=== PATIENT | female | born 1945 | race African-American/Black ===

== ENCOUNTER 2025-03-21 15:10 | Inpatient (IN) | payer MEDICARE, SELFPAY ==
--- NOTE | ~2025-03-21 | CT_ITS ---
EXAMINATION: CTA NECK WITH CONTRAST (STROKE) CTA BRAIN WITH CONTRAST (STROKE) CLINICAL INFORMATION: Suspect acute stroke. Assess for major vessel occlusion. Please call report. COMPARISON: Correlated to CT brain dated March 21, 2025. TECHNIQUE: CTA of the head and neck was performed in the axial plane from the mediastinum to the skull vertex using 70 mL Omnipaque 350 intravenous contrast. Additional reformatted multiplanar images including maximum intensity projection MIP images are generated on the CT workstation. This CT examination was performed using dose optimization techniques as appropriate, variously including the following: *Automated exposure control *Adjustment of mA and/or kV according to patient size (this includes techniques or standardized protocols for targeted exams where dose is matched to indication/reason for exam; i.e. extremities or head) *Use of iterative reconstruction technique DLP: 701 mGy-cm FINDINGS: The degree of stenosis determined by criteria similar to NASCET. Chest CTA: No aneurysm or dissection in the included aortic arch. Calcified plaque in the origin of the left subclavian artery. Neck CTA: Right CCA: Tortuosity. Normal patency. No focal stenosis. No intimal flap. Right ICA: Calcified plaque. Normal patency. No focal stenosis. No intimal flap. Left CCA: Normal patency. No focal stenosis. No intimal flap. Tortuosity in the proximal segment. Left ICA: Calcified plaque representing less than 50% stenosis. Normal patency. No intimal flap. V1/V2 segments: Normal patency. No focal stenosis. No intimal flap. Codominant. Both orientating from the subclavian arteries. Brain CTA: Anterior cerebral circulation: ICAs: Calcified plaque. Normal patency. No focal stenosis. No abrupt cut off. No gross vascular abnormality. MCA's: Normal patency. No focal stenosis. No abrupt cut off. Bifurcation/trifurcation demonstrated no vascular abnormality. Ophthalmic arteries are patent without gross abnormality at the origin. ACAs: Normal patency. No focal stenosis. No abrupt cut off. Anterior communicating artery is patent. Posterior communicating arteries are patent. No vascular irregularity. Posterior cerebral circulation: V3/V4 segments: Normal patency. No focal stenosis. No intimal flap. Posterior inferior cerebral arteries are patent without gross abnormality. Basilar artery is patent without focal stenosis or intimal flap. Right anterior inferior cerebral arteries patent without gross abnormality. Superior cerebellar arteries are patent without gross abnormality. technical advisor: Normal patency. No focal stenosis. No abrupt cut off. Hypoplastic right P1 segment. Ancillary findings: There is a 16 x 10 mm partially calcified extra-axial soft tissue lesion posterior to the left petrous bone and above the vestibular aqueduct. Absent nasal septum. Edentulous, maxilla and mandible. Large retention cyst, right maxillary sinus. Poor pneumatization right frontal sinus. Pulmonary mosaic pattern. Multilevel cervical spondylosis., CT/CT angio head neck STROKE IMPRESSION: No main cerebral artery occlusion or embolus or gross aneurysm. No dissection. Calcified plaques, left ICA. 16 x 10 mm extra-axial partially calcified mass in the left posterior cranial fossa. Consider partially calcified meningioma versus endolymphatic sac tumor. 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 This critical test result is communicated to: The emergency physician Dr. Antoine Lua at 3:44 PM on March 21, 2025. Electronically signed by: Austin Davis MD 03/21/2025 03:55 PM [facility]
--- NOTE | ~2025-03-21 | MR_ITS ---
CLINICAL HISTORY: right sided weakness Exam: Nonenhanced MRI brain. Comparison: CT brain performed the same day. Findings: There is no cerebral edema or mass effect. White matter reveals multifocal areas of T2 hyperintensity common nonspecific although likely sequela of chronic microangiopathic disease. Diffusion weighted imaging reveals no restricted diffusion or MR evidence of acute ischemia. Susceptibility weighted imaging reveals no susceptibility artifact or evidence of intracranial hemorrhage. No sellar or parasellar lesions. Ventricular size and configuration are within normal limits. Cerebral cisterns are preserved. A right maxillary sinus retention cyst is present. No other significant signal abnormality seen within the paranasal sinuses or mastoid air cells. Preserved flow signal voids are present within visualized intracranial vasculature. Impression: 1. No acute intracranial abnormalities. This document has been electronically signed by: Michael Sahu MD on 03/21/2025 18:41:59
--- NOTE | ~2025-03-21 | CT_ITS ---
EXAMINATION: CT HEAD WITHOUT IV CONTRAST STROKE HISTORY: Stroke Protocol. TECHNIQUE: Unenhanced helical CT of the head was performed per standard departmental protocol. Coronal and sagittal reformats of the head were also evaluated. One or more of the following techniques was used for dose reduction: Automated exposure control, adjustment of the mA and/or kV according to patient size, use of iterative reconstruction technique. DLP: 665 mGy-cm COMPARISON: There are no prior studies available for comparison. FINDINGS: BRAIN: There is diffuse prominence of the ventricular system and cortical sulci, consistent with atrophy. Periventricular and subcortical white matter hypodensities are noted which are nonspecific, but often seen in the setting of small vessel ischemic disease. There is no mass effect or midline shift. No intra- or extra-axial fluid collections are identified. SINUSES: The visualized paranasal sinuses are clear. The mastoid air cells and middle ear cavities are well pneumatized. ORBITS: The visualized orbits are unremarkable. BONES/SOFT TISSUES: The extracranial soft tissues are unremarkable. The calvarium is intact. No suspicious lytic or sclerotic lesions. CT/CT head for STROKE IMPRESSION: No acute intracranial abnormality. Findings were discussed with Dr. Chan in the emergency room on 03/21/2025 at 3:28 PM. Electronically signed by: Navi Morse MD 03/21/2025 03:26 PM [facility]
--- NOTE | 2025-03-21 15:15 | ECG_ITS ---
Test Reason : ?stroke Blood Pressure : */* mmHG Vent. Rate : 58 BPM Atrial Rate : 58 BPM P-R Int : 146 ms QRS Dur : 78 ms QT Int : 448 ms P-R-T Axes : 30 -33 0 degrees QTcB Int : 439 ms Sinus bradycardia with occasional Premature ventricular complexes Left axis deviation Minimal voltage criteria for LVH, may be normal variant ( R in aVL ) Abnormal ECG When compared with ECG of 13-Feb-2010 00:48, MANUAL COMPARISON REQUIRED PREVIOUS ECG IS INCOMPATIBLE Referred By: Antoine Chan Electronically Signed By: Phong Lopes
--- NOTE | 2025-03-21 15:17 | ED.NEUROSD ---
HPI - Neuro Symptoms/Deficit General Chief Complaint: Stroke Stated Complaint: lkwt 2 am, R side facial doop/weakness, Time Seen by Provider: 03/21/25 15:15 History of Present Illness ED Provider: kelly HPI Narrative: Patient was last known well 02:00 when she went to bed someone in family member in the house saw her then. Awoke 10:00 with speech changes subtle right facial droop noted by family. EMS arrived felt that her right upper extremity is slightly weak. Called in as notification for possible stroke. Blood pressure 170s over 80s and route with euglycemia. Related Data Home Medications ?Medication ?Instructions ?Recorded ?Confirmed amlodipine 2.5 mg tablet 2.5 mg PO DAILY 03/21/25 03/21/25 aspirin 81 mg tablet 81 mg PO DAILY 03/21/25 03/21/25 atorvastatin 40 mg tablet 40 mg PO DAILY 03/21/25 03/21/25 gabapentin 600 mg tablet 600 mg PO TID 03/21/25 03/21/25 quetiapine 400 mg tablet,extended 400 mg PO BEDTIME 03/21/25 03/21/25 release 24 hr risperidone 2 mg tablet 2 mg PO BID 03/21/25 03/21/25 Allergies Allergy/AdvReac Type Severity Reaction Status Date / Time No Known Allergies Allergy Verified 03/21/25 15:33 [facility] Past Medical History Medical History (Updated 03/22/25 @ 10:44 by Óscar Kohler MD) Hypertension Social History Social History Household Members: None Housing: Apartment Do you presently have visiting nurse or other home services: Yes Patient Tobacco Use Status: Never used Tobacco Smoked in Last 30 Days: No Use of substances other than those prescribed or required for medical reasons: No Have you been hit, kicked, punched, or otherwise hurt by someone within the past year? If so, by whom?: No Do you feel safe in your current relationship?: No Is there a partner from a previous relationship who is making you feel unsafe now?: No Are you made to feel afraid or neglected: No Advance Directives: No Advance Directives Information Provided: No Advance Directives on File: No Do you have a plan to hurt others: No Plan Recently lost weight without trying: Yes How much weight loss: 2-13 pounds Eating poorly because of decreased appetite: No Nutrition screen score: 3 Nutrition Risks: No Nutritional Risk Patient : No : No Poor oral hygiene: No Physical Exam Exam: Exam: GENERAL: Well appearing. No apparent distress. Alert. HEAD/NECK: Normal to inspection. Neck supple. No cervical lymphadenopathy. EYES: Normal to inspection. Sclera non-icteric. ENMT: External nose normal. RESPIRATORY: Respiratory effort normal. Lungs clear to auscultation bilaterally. CARDIOVASCULAR: Regular rate. Normal rhythm. No murmur. No rubs. GI: Soft, non-tender, non-distended. No rebound or guarding. No masses palpable. No hepatosplenomegaly. SKIN: No jaundice. NEUROLOGICAL: Alert. PSYCHIATRIC: Alert. Appearance appropriate for situation. Attitude cooperative. OTHER: Comprehensive Neuro exam: Perhaps subtle right-sided facial droop, tongue midline, strong symmetric eye closure, pupils symmetric and reactive to light, intact sensation to the face throughout, intact strong face deviation and shoulder shrug. Sensation intact to light touch throughout 5 out of 5 strength in left upper extremity subtle weak [employer] strength on the right side and pronator drift proximally, 5 and 5 strength in lower extremities Vital Signs: Vital Signs: Last Vital Signs Temp 97.3 F 03/22/25 11:48 Pulse 51 03/22/25 11:48 Resp 18 03/22/25 11:48 BP 187/80 H 03/22/25 11:48 Pulse Ox 100 03/22/25 11:48 O2 Del Method Room Air 03/22/25 11:48 BMI result Body Mass Index 31.5 Medications Administered Generic Name Dose Route Start Last Admin Trade Name Freq PRN Reason Stop Dose Admin Aspirin 81 mg 03/22/25 09:00 03/22/25 09:37 Aspirin Enteric Coated 81 Mg Tablet.Dr PO 81 mg DAILY MONO Administration Atorvastatin Calcium 80 mg 03/21/25 21:00 03/21/25 20:46 Atorvastatin Calcium 80 Mg Tablet PO 80 mg BEDTIME MONO Administration Cyanocobalamin 1,000 mcg 03/22/25 09:00 03/22/25 09:37 Cyanocobalamin (Vitamin B-12) 1,000 Mcg Tablet PO 1,000 mcg DAILY MONO Administration Enoxaparin Sodium 40 mg 03/22/25 10:00 03/22/25 09:40 Enoxaparin Sodium 40 Mg/0.4 Ml Syringe SUBCUT 40 mg Q24H MONO Administration Folic Acid 1 mg 03/22/25 09:00 03/22/25 09:37 Folic Acid 1 Mg Tablet PO 1 mg DAILY MONO Administration Gabapentin 600 mg 03/21/25 21:00 03/22/25 09:37 Gabapentin 600 Mg Tablet PO 600 mg TID MONO Administration Quetiapine Fumarate 200 mg 03/21/25 21:00 03/22/25 09:37 Quetiapine Fumarate 200 Mg Tablet PO 200 mg BID MONO Administration Risperidone 2 mg 03/21/25 21:00 03/22/25 09:37 Risperidone 2 Mg Tablet PO 2 mg BID MONO Administration Sodium Chloride 3 ml 03/22/25 00:00 03/22/25 12:05 0.9 % Sodium Chloride Flush 3 Ml Syringe IVFLUSH Not Given QSHIFT MONO Discontinued Medications Generic Name Dose Route Start Last Admin Trade Name Donq PRN Reason Stop Dose Admin Aspirin 324 mg 03/21/25 15:48 03/21/25 16:00 Aspirin 81 Mg Tab.Chew PO 03/21/25 15:49 324 mg ONCE ONE Administration Iohexol 100 ml 03/21/25 15:36 03/21/25 15:36 Iohexol 350 Mg/Ml 100 Ml Infus..Btl IV 03/21/25 15:37 70 ml ONCE ONE Administration Medical Decision Making Medical Decision Making MDM Narrative: Medical Decision Making: [age] female with neurologic symptoms mostly aphasia right-sided facial droop and weak [employer] strength right side. Stroke scale see above. NIHSS [address] and CTA negative for acute explanation for the patient's symptoms. Patient will need telemetry, risk stratification, aspirin MRI. Preliminary Favored Differential Diagnosis: CVA, less likely focal seizure, bleed, mass among additional considered etiologies Testing Interpreted Independently: Sinus rhythm no AFib verse ischemic changes. Radiology or Lab testing Results Reviewed: ?See below for details Consults: Case and imaging discussed directly with Dr. Darrin hammond of radiology Independent Historians/External Chart Reviews: ?See below for details Social Determinants of Health Impacting MDM/Planning: ?See below for details Lab Data 03/22/25 04:30 03/22/25 04:30 Labs: Lab Results 03/21/25 03/21/25 03/21/25 Range/Units 15:12 15:20 15:21 WBC 3.3 L (4.8-10.8) X10*3/uL RBC 3.32 L (4.20-5.50) X10*6/uL Hgb 12.0 (12.0-16.0) g/dl Hct 35.8 L (37.0-47.0) % MCV 107.8 H (80.0-98.0) fL MCH 36.1 H (27.0-33.0) pg MCHC 33.5 (31.0-35.0) g/dl RDW 15.0 (11.0-16.0) % Plt Count 167 (160-400) X10*3/uL MPV 10.4 (9.4-12.3) fL Immature Gran % (Auto) 0.3 (0.0-0.4) % Neut % (Auto) 53.1 (45-73) % Lymph % (Auto) 37.3 (20-40) % [place] % (Auto) 4.8 (2-11) % Eos % (Auto) 3.9 (0-4) % Baso % (Auto) 0.6 (0-2) % Lymph # (Auto) 1.2 (1.2-4.9) X10*3/uL [place] # (Auto) 0.2 (0.1-1.2) X10*3/uL Eos # (Auto) 0.1 (0.0-0.4) X10*3/uL Baso # (Auto) 0.0 (0.0-0.2) X10*3/uL Abs Immat Gran (auto) 0.01 (0.00-0.03) X10*3/uL Absolute Neuts (auto) 1.8 L (2.0-8.3) x10*3/uL Absolute Nucleated RBC 0.000 (0.0-0.012) X10*3/uL Nucleated RBC % (auto) 0.0 (0.0-0.2) /100WBC PT (11.2-13.5) SEC Whole Blood PT 12.8 (11.1-13.5) sec INR (0.9-1.1) Whole Blood INR 1.1 (0.9-1.1) APTT (26.7-34.1) SEC Sodium (135-145) mmol/L Potassium (3.3-5.1) mmol/L Chloride (96-108) mmol/L Carbon Dioxide (22-29) mmol/L Anion Gap (12-20) BUN (9-16) mg/dL Creatinine (0.5-1.4) mg/dL Estim Creat Clear Calc Estimated GFR POC Glucose 95 (60-115) mg/dL Random Glucose (60-115) mg/dL Estimat Average Glucose 82 mg/dL Hemoglobin A1c % 4.5 (<6.0) % Calcium (8.4-10.2) mg/dL Magnesium (1.6-2.6) mg/dL Total Bilirubin (0.0-1.0) mg/dL Direct Bilirubin (0.0-0.5) mg/dL AST (5-31) U/L ALT (0-31) U/L Alkaline Phosphatase (39-117) U/L Troponin I High Sens < 2.7 (<3.5-17.0) ng/L Total Protein (6.5-8.0) g/dL Albumin (3.5-5.0) g/dL Triglycerides (<150) mg/dL Cholesterol (<200) mg/dL LDL Cholesterol, Calc (<100) mg/dL HDL Cholesterol (>40) mg/dL TSH (0.32-4.0) uIU/mL 03/21/25 03/21/25 Range/Units 15:34 15:36 WBC (4.8-10.8) X10*3/uL RBC (4.20-5.50) X10*6/uL Hgb (12.0-16.0) g/dl Hct (37.0-47.0) % MCV (80.0-98.0) fL MCH (27.0-33.0) pg MCHC (31.0-35.0) g/dl RDW (11.0-16.0) % Plt Count (160-400) X10*3/uL MPV (9.4-12.3) fL Immature Gran % (Auto) (0.0-0.4) % Neut % (Auto) (45-73) % Lymph % (Auto) (20-40) % [place] % (Auto) (2-11) % Eos % (Auto) (0-4) % Baso % (Auto) (0-2) % Lymph # (Auto) (1.2-4.9) X10*3/uL [place] # (Auto) (0.1-1.2) X10*3/uL Eos # (Auto) (0.0-0.4) X10*3/uL Baso # (Auto) (0.0-0.2) X10*3/uL Abs Immat Gran (auto) (0.00-0.03) X10*3/uL Absolute Neuts (auto) (2.0-8.3) x10*3/uL Absolute Nucleated RBC (0.0-0.012) X10*3/uL Nucleated RBC % (auto) (0.0-0.2) /100WBC PT 12.7 (11.2-13.5) SEC Whole Blood PT (11.1-13.5) sec INR 1.0 (0.9-1.1) Whole Blood INR (0.9-1.1) APTT 27.8 (26.7-34.1) SEC Sodium 145 (135-145) mmol/L Potassium 3.5 (3.3-5.1) mmol/L Chloride 110 H (96-108) mmol/L Carbon Dioxide 28 (22-29) mmol/L Anion Gap 11 L (12-20) BUN 8 L (9-16) mg/dL Creatinine 0.66 (0.5-1.4) mg/dL Estim Creat Clear Calc 77.4 Estimated GFR > 60 POC Glucose (60-115) mg/dL Random Glucose 91 (60-115) mg/dL Estimat Average Glucose mg/dL Hemoglobin A1c % (<6.0) % Calcium 9.9 (8.4-10.2) mg/dL Magnesium 1.7 (1.6-2.6) mg/dL Total Bilirubin 0.5 (0.0-1.0) mg/dL Direct Bilirubin 0.2 (0.0-0.5) mg/dL AST 21 (5-31) U/L ALT 10 (0-31) U/L Alkaline Phosphatase 78 (39-117) U/L Troponin I High Sens (<3.5-17.0) ng/L Total Protein 7.0 (6.5-8.0) g/dL Albumin 3.8 (3.5-5.0) g/dL Triglycerides 62 (<150) mg/dL Cholesterol 249 H (<200) mg/dL LDL Cholesterol, Calc 160 H (<100) mg/dL HDL Cholesterol 77 (>40) mg/dL TSH 0.68 (0.32-4.0) uIU/mL NIH Stroke Scale Internal: Initial- Upon Arrival Time: 15:30 Level of Consciousness: Alert Level of Consciousness Questions: Answers both questions correctly Level of Consciousness Commands: Performs both tasks correctly Best Gaze: Normal Visual: No visual loss Facial Palsy: Minor paralyis Motor Arm (Right): Drift Motor Arm (Left): No drift Motor Leg (Right): No drift Motor Leg (Left): No drift Limb Ataxia: Absent Sensory: Normal Best Language: No aphasia Dysarthia: Mild to moderate dysarthria Extinction and Inattention: No abnormality Score: 3 Discharge Plan Discharge Clinical Impression: Brain parenchymal calcification Patient Disposition: Admitted As Inpatient Interventions: Admission Worksheet (ED) Last Done: 03/22/25 07:42 Discharge Date/Time: 03/22/25 09:00
[2025-03-21 15:24] LABS: Glucose, Whole Blood 95 mg/dL (60-115)
[2025-03-21 15:30] VITALS: BP 164/69; PULSE 75; RESP 12; TEMP 36.7; O2SAT 98; BMI 31.5
[2025-03-21] MEDS: iohexoL 350 MG/ML 100 ML INFUS..BTL IV (15:36)
[2025-03-21 15:37] LABS: MANUAL DIFF FLAG NO
[2025-03-21 15:41] LABS: Hematocrit 35.8 % (37.0-47.0); Hemoglobin 12.0 g/dl (12.0-16.0); Imm Gran Abs Auto 0.01 X10*3/uL (0.00-0.03); Imm Gran Pct Auto 0.3 % (0.0-0.4); Lymphocytes Absolute Auto 1.2 X10*3/uL (1.2-4.9); Mean Corpuscular HGB Conc 33.5 g/dl (31.0-35.0); Mean Corpuscular Hemoglobin 36.1 pg (27.0-33.0); Mean Corpuscular Volume 107.8 fL (80.0-98.0); NRBC Abs Auto 0.000 X10*3/uL (0.0-0.012); NRBC Pct Auto 0.0 /100WBC (0.0-0.2); Platelet Count 167 X10*3/uL (160-400); Red Blood Count 3.32 X10*6/uL (4.20-5.50); White Blood Count 3.3 X10*3/uL (4.8-10.8)
[2025-03-21 15:57] LABS: INTERNATIONAL NORM RATIO 1.0 (0.9-1.1); Prothrombin Time 12.7 SEC (11.2-13.5)
[2025-03-21 15:59] VITALS: BP 155/89; PULSE 59; RESP 15; O2SAT 96
[2025-03-21 16:00] LABS: Partial Thromboplastin Time 27.8 SEC (26.7-34.1)
[2025-03-21 16:00] LABS: Prothrombin Time Whole Bld POC 12.8 sec (11.1-13.5); ~PT, ~INR - Anti Coag Clinic 1.1 (0.9-1.1)
[2025-03-21 16:02] LABS: Stroke Lab Use COMPLETE
[2025-03-21 16:05] LABS: Troponin-I High Sensitivity < 2.7 ng/L (<3.5-17.0)
--- NOTE | 2025-03-21 16:39 | PM.IMHP ---
History of Present Illness Date of Service: 03/21/25 Chief Complaint: aphasia 80M PMH HTN, schizoaffective, breast and endometrial cancer in remission presented with expressive aphasia. Last known well time was 02:00 of day of presentation. For on 10:00 sister noticed expressive aphasia and slurred speech, patient noticed some right upper extremity weakness. In ED CTA head and neck negative for acute stroke or cerebral artery occlusion did show incidental finding of extra-axial calcified mass in left posterior cranial fossa Review of Systems Review of Systems: Yes all other systems are reviewed and are negative [facility] Medical History (Updated 03/21/25 @ 16:42 by Vel Villarreal MD) Hypertension Social History Do you have a plan to hurt others: No Plan Meds Allergies Allergy/AdvReac Type Severity Reaction Status Date / Time No Known Allergies Allergy Verified 03/21/25 15:33 Active Medications: Current Medications Acetaminophen (Acetaminophen 325 Mg Tablet) 650 mg PO Q6H PRN PRN Reason: Pain, Mild 1-3,fever,headache Calcium Carbonate (Calcium Carbonate 750 Mg Tab.Chew) 750 mg PO Q4H PRN PRN Reason: Heartburn Enoxaparin Sodium (Enoxaparin Sodium 40 Mg/0.4 Ml Syringe) 40 mg SUBCUT Q24H MONO Magnesium Hydroxide (Milk Of Magnesia 30 Ml Oral.Susp) 30 ml PO DAILY PRN PRN Reason: Constipation Magnesium Hydroxide (Milk Of Magnesia 30 Ml Oral.Susp) 30 ml PO DAILY PRN PRN Reason: Constipation Melatonin (Melatonin 3 Mg Tablet) 6 mg PO BEDTIME PRN PRN Reason: Insomnia Sodium Chloride (0.9 % Sodium Chloride Flush 3 Ml Syringe) 3 ml IVFLUSH QSHIFT [facility] Physical Exam Vital Signs and Narrative: Vital Signs: Last Vital Signs Temp 98.0 F 03/21/25 15:30 Pulse 59 03/21/25 15:59 Resp 15 03/21/25 15:59 BP 155/89 H 03/21/25 15:59 Pulse Ox 96 03/21/25 15:59 O2 Del Method Room Air 03/21/25 15:59 BMI result Body Mass Index 31.5 General: AO X 3, no acute distress Resp: CTA bilateral, no accessory muscles used CVS: S1,S2,RRR GI: soft, non tender, non distended Neuro: Mild right upper extremity weakness Psych: appropriate affect, appropriate insight Results Labs 03/21/25 15:21 03/21/25 15:20 Labs: Laboratory Results - last 24 hr 03/21/25 03/21/25 03/21/25 15:12 15:20 15:21 MCV 107.8 H MCH 36.1 H MCHC 33.5 RDW 15.0 Plt Count 167 MPV 10.4 Immature Gran % (Auto) 0.3 Neut % (Auto) 53.1 Lymph % (Auto) 37.3 [place] % (Auto) 4.8 Eos % (Auto) 3.9 Baso % (Auto) 0.6 Lymph # (Auto) 1.2 [place] # (Auto) 0.2 Eos # (Auto) 0.1 Baso # (Auto) 0.0 Abs Immat Gran (auto) 0.01 Absolute Neuts (auto) 1.8 L Absolute Nucleated RBC 0.000 Nucleated RBC % (auto) 0.0 PT Whole Blood PT 12.8 INR Whole Blood INR 1.1 APTT POC Glucose 95 Troponin I High Sens < 2.7 03/21/25 15:34 MCV MCH MCHC RDW Plt Count MPV Immature Gran % (Auto) Neut % (Auto) Lymph % (Auto) [place] % (Auto) Eos % (Auto) Baso % (Auto) Lymph # (Auto) [place] # (Auto) Eos # (Auto) Baso # (Auto) Abs Immat Gran (auto) Absolute Neuts (auto) Absolute Nucleated RBC Nucleated RBC % (auto) PT 12.7 Whole Blood PT INR 1.0 Whole Blood INR APTT 27.8 POC Glucose Troponin I High Sens Imaging Radiologist's Impressions: Impressions Head CT 03/21/25 15:16 IMPRESSION: No acute intracranial abnormality. Findings were discussed with Dr. Chan in the emergency room on 03/21/2025 at 3:28 PM. Electronically signed by: Navi Morse MD 03/21/2025 03:26 PM [facility] Head/Neck CTA 03/21/25 15:20 IMPRESSION: No main cerebral artery occlusion or embolus or gross aneurysm. No dissection. Calcified plaques, left ICA. 16 x 10 mm extra-axial partially calcified mass in the left posterior cranial fossa. Consider partially calcified meningioma versus endolymphatic sac tumor. 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 This critical test result is communicated to: The emergency physician Dr. Antoine Lua at 3:44 PM on March 21, 2025. Electronically signed by: Austin Davis MD 03/21/2025 03:55 PM [facility] Assessment and Plan (1) Hypertension: Status: Acute Plan 80M PMH HTN, schizoaffective, breast and endometrial cancer in remission presented with expressive aphasia Expressive aphasia right upper extremity weakness Rule out TIA/CVA Check MRI, echo, neuro eval, PT OT speech Aspirin, statin Hypertension Permissive hypertension Schizoaffective Risperdal History of breast and endometrial cancer In remission Macrocytosis Possibly due to alcohol use, drinks about 2 bottles of wine per week Check B12, folate, TSH DVT prophylaxis Lovenox Full code Given high-risk for CVA and recurrent CVA and need for extensive workup including neurology eval expected require at least 2 midnights inpatient Quality Stroke Does the patient have a stroke diagnosis?: Yes Reason for No Anti-thrombotic by Day Two: N/A - Med Ordered VTE Prior VTE?: No VTE Risk Level:: Medical - moderate - high VTE Device Contraindication: Treatment Not Indicated VTE Drug Contraindication: N/A - Med Ordered
[2025-03-21 17:11] LABS: Anion Gap 11 (12-20); Blood Urea Nitrogen 8 mg/dL (9-16); Calcium 9.9 mg/dL (8.4-10.2); Carbon Dioxide 28 mmol/L (22-29); Chloride 110 mmol/L (96-108); Cholesterol 249 mg/dL (<200); Creatinine Clr Calc Pharmacy 77.4; Estimated Glomerular Filt Rate > 60; HDL Cholesterol 77 mg/dL (>40); Potassium 3.5 mmol/L (3.3-5.1); Sodium 145 mmol/L (135-145); Triglycerides 62 mg/dL (<150)
[2025-03-21 17:34] LABS: Magnesium 1.7 mg/dL (1.6-2.6)
[2025-03-21 17:58] LABS: Alanine Aminotransferase 10 U/L (0-31); Albumin Level 3.8 g/dL (3.5-5.0); Alkaline Phosphatase 78 U/L (39-117); Aspartate Amino Transferase 21 U/L (5-31); Total Protein 7.0 g/dL (6.5-8.0)
--- NOTE | 2025-03-21 18:21 | PHA.MEDREC ---
Addendum entered by Kortney Pastrana [facility] 03/21/25 18:23: provider notified med rec complete Original Note: Pharmacy Consult ? Medication Reconciliation Pharmacy has completed the medication reconciliation.Spoke with patient and patients sister in ED. Patient had a list of medications in her purse. Patient fills at the [facility] in [place], [place].
[2025-03-21 18:27] VITALS: BP 163/80; PULSE 67; RESP 12; O2SAT 97
[2025-03-21 18:42] VITALS: BP 149/73; PULSE 63; RESP 12; TEMP 36.7; O2SAT 95
[2025-03-21 18:56] VITALS: BP 158/73; PULSE 58; RESP 18; O2SAT 98
--- NOTE | 2025-03-21 20:49 | PC.NURSE ---
took po night meds without difficulty. pt answers all questions appropriately
--- OUTSIDE RECORDS SUMMARY | 2025-03-21 21:04 | XMS_ITS | Clinical Summary ---
Author Organization [employer] Address [address] [place] [address] [address] [place] [address] Care Team Providers Care Mechanical Expert Name Role Phone Maureen Rodríguez NP Primary Care Provider Allergies Active Allergy Reactions Criticality Noted Date Comments Codeine Rash Low 10/28/2022 Medications * This document contains information received from the source organization and may not represent a complete record from that organization. sennosides (Senokot) 8.6 MG tablet Take 1 tablet (8.6 mg) by mouth Once per day. 30 tablet 11 06/10/19 Active Additional Information Patient not taking.Reported on 12/18/2024 risperiDONE (RisperDAL) 2 MG tablet Take 1 tablet (2 mg) by mouth 2 times daily. 60 tablet 5 12/19/19 25 Active QUEtiapine XR (SEROquel XR) 400 MG 24 hr tabletIndicati ons:per pharmacy Take 1 tablet (400 mg) by mouth at bedtime. Do not crush, chew, or split. 30 tablet 5 12/19/19 026 Active atorvastatin (Lipitor) 40 MG tablet TAKE 1 TABLET(40 MG) BY MOUTH DAILY 90 tablet 1 01/06/20 25 Active gabapentin (Neurontin) 600 MG tablet TAKE 1 TABLET(600 MG) BY MOUTH THREE TIMES DAILY 90 tablet 01/24/20 25 Active amLODIPine (Norvasc) 2.5 MG tablet TAKE 1 TABLET(2.5 MG) BY MOUTH DAILY 90 tablet 03/06/20 25 Active amLODIPine (Norvasc) 2.5 MG tablet TAKE 1 TABLET(2.5 MG) BY MOUTH DAILY 90 tablet 02/09/20 25 025 Discontinued Active Problems Patient Care Coordination No te Formatting of this note migh t be different from the original. CM case closure, UTR. MR/CHW/Ext. 315 Problem Noted Date Diagnosed Date Moderate episode of recurren t major depressive disorder (CMS/FORMERLY [facility]) 12/18/2024 Assessment & Plan (12/18/2024 12:30 PM EDT): Endorses depressive symptoms due to management is trying to get me to leave Denies thoughts of self harm or suicide Agreeable to meet with behavioral health for both medication management and therapist. Internal BH referral placed. Primary hypertension 06/09/2024 Assessment & Plan (12/18/2024 12:25 PM EDT): BP at goal (126/84) Continue amlodipine 2.5mg daily Low sodium diet, regular exercise encouraged. Assessment & Plan (06/09/2024 5:23 PM EST): BP not at goal (144/94) Ran out of amlodipine a couple weeks ago Will restart amlodipine 2.5mg daily Will have patient return for BP check with nursing Low sodium diet, regular exercise encouraged. Other schizoaffective disorders 11/29/2023 Assessment & Plan (12/18/2024 12:28 PM EDT): Endorses compliance with all medications States management is trying to drive her crazy so that she will leave. Audio Visual Tech is Radha Taylor States they are turning up her heat in the apartment at random times and she will have to get up and turn it off or turn on the air conditioner. Agreeable to behavioral health referral for both medication management and therapist. Urinary dysfunction 11/25/2022 Assessment & Plan (11/25/2022 4:50 PM EDT): Primary sx is urgency and weak stream Concern for outlet obstruction given worsening with oxybutynin and recent TAHBSO for uterine. Refer to urology for consideration of urodynamics if indicated. care home current use of antipsychotic medicatio n 11/25/2022 Overview (11/25/2022): assess for Qtc prolongation. Peripheral edema 11/25/2022 Assessment & Plan (10/26/2023 10:47 AM EDT): Mild non-pitting edema to ankles - reports this is chronic, partial resolution with leg elevation. ? Anticholinergic effects of quetiapine, vs vascular insufficiency vs cardiac dysfunction after chemo EKG inconsistent with LVH or structural heart disease Reassess next visit. Consider echo. Assessment & Plan (11/25/2022 5:04 PM EDT): ? Anticholinergic effects of quetiapine, vs vascular insufficiency vs cardiac dysfunction after chemo EKG inconsistent with LVH or structural heart disease Asesses electrolytes, bnp, thyroid function. Reassess in 4 weeks. Consider echo. Acquired absence of both cervix and uterus 10/28 Cancer of inguinal region 10/28/2022 Generalized anxiety disorder 10/28/2022 History of endometrial cancer 10/28/2022 Hypercholesteremia 10/28/2022 Assessment & Plan (10/26/2023 10:51 AM EDT): Hx of elevated cholesterol panel Will repeat cholesterol panel today Encouraged low fat, low cholesterol diet. Class 1 obesity due to exces s calories with serious comorbidity and body mass index (BMI) of 30.0 to 30.9 in adult 10/28/2022 Assessment & Plan (12/18/2024 12:26 PM EDT): BMI 30.42, up from 29.21 Counseled on healthy diet and increased exercise, recommended 150 minutes of exercise per week. Assessment & Plan (10/26/2023 10:48 AM EDT): BMI 29.21 Counseled on healthy diet and increased execise, recommended 150 minutes of exercise per week. Primary insomnia 10/28/2022 Assessment & Plan (06/09/2024 5:20 PM EST): Prescribed by former provider. Denies history of schizoaffective disorder or bipolar disorder. States it was for sleep and dosage increased to 400 mg by her oncologist. Issues primarily with latency, sleep hygeine adequate. Offered and declined other medications such as ramelteon. Discussed risks of prison use of antipsychotic medications including from cardiac dysrhythmia and patient verbalized understanding. Patient will follow up with oncology for refills. Assessment & Plan (11/25/2022 5:00 PM EDT): Ordered by former provider. Denies history of schizoaffective disorder or bipolar disorder. States it was for sleep and dosage increased to 150 mg by her oncologist. Issues primarily with latency, sleep hygeine adequate. Offered and declined other medications such as ramelteon. Discussed risks of mechanical pencils assembler use of antipsychotic medications including from cardiac dysrhythmia and patient amenable. Patient will follow up with oncology for refills. Encounter Date: 11/25/22 ECG 12 lead Narrative Normal sinus rhythm Left axis deviation QTc within clinically acceptable limits (444 ms) No prior for comparison Continue Quetiapine 150 mg nightly Primary osteoarthritis involving multiple joints 10/28/2022 Hypomagnesemia 11/13/2021 BRCA gene mutation negative in female 03/05/2021 Chemotherapy-induced neutropenia 10/15/2020 Anemia 08/22/2020 Endometrial carcinoma (CMS/HCC) 08/15/2020 Overview (10/26/2023): F/by [facility] Heme/Onc Dr. Rissa Moreno Continue letrozole 2.5mg daily NV 10/27/2023 @ 3:15pm Resolved Problems Problem Noted Date Diagnosed Date Resolved Date Acquired absence of ovaries, bilateral 10/28/2022 10/26/2023 Bipolar 1 disorder (CMS/HCC) 10/28/2022 01/27/2024 Assessment & Plan (11/10/2023 10:45 AM EDT): Hosp follow up. Persistent dellusional behavior. Needs follow up with F[facility]. Called [facility] - they can fill seroquel rx for her today. Assessment & Plan (10/26/2023 10:50 AM EDT): Currently taking seroquel 150mg nightly Presents mildly paranoid, thinks management is trying to get her evicted. Reports they are blowing air into her apartment - into her nose, ears, vagina. Will refer to behavioral health for evaluation Malignant neoplasm of unspec ified site of right female breast ([facility]/HCC) 10/28/2022 06/09/2024 Other obesity due to excess calories 10/28/2022 10/26/2023 Undifferentiated schizophrenia (CMS/HCC) 10/28/2022 01/27/2024 Paranoia (psychosis) 10/27/2022 024 Assessment & Plan (10/26/2023 10:51 AM EDT): Presents with mild paranoia. Endorses nightly compliance with Seroquel Will refer to behavioral health for evaluation and treatment. Malignant neoplasm of upper- outer quadrant of right breast in female, estrogen receptor positive ([facility]/HCC) 09/09/2020 06/09/2024 Shortness of breath 08/22/2020 10/26/19 24 PMB (postmenopausal bleeding) 08/22/2020 10/26/2023 Vaginal bleeding 08/01/2020 10/26/2023 Encounters * This document contains information received from the source organization and may not represent a complete record from that organization. Date Type Department Care Team Description 03/06/2025 Refill [facility] [address] [place] [address] Maureen Rodríguez, MARTHA 02/08/2025 Refill [facility] [address] [place] [address] Maureen Rodríguez NP 01/29/2025 Telephone [facility] [address] [place] [address] Gladys Guillermo, MOJGAN Care Coordination 01/25/2025 Telephone [facility] [address] [place] [address] Maureen Rodríguez, MARTHA Med Refill (Call center) 01/23/2025 Refill [facility] [address] [place] [address] Maureen Rodríguez NP 01/05/2025 Refill [facility] [address] [place] [address] Maureen Rodríguez, MARTHA from Last 3 Months Immunizations Immunization Administration Dates Next Due Influenza injectable quadrivalent preservative f ree 01/16/2022 Influenza, IIV3, injectable 12/29/2013 Influenza, seasonal, injectable, preservative fr ee 12/18/2024 Moderna Covid-19 Vaccine 12+ 06/07/2020,05/10/19 21 Pfizer Covid-19 Vaccine 12+ Bivalent 01/16/2022 Pneumococcal Conjugate PCV 15 12/18/2024 Pneumococcal Polysaccharide PPSV23 10/26/2023, Tdap 02/26/2014 Zoster, Recombinant 06/09/2024,10/26/2023 Family History Medical History Relation Name Comments Cancer Mother Cancer Sister Relation Name Status Comments Father Mother Sister Social History Tobacco Use Types Packs/Day Years Used Date Smoking Tobacco: Never Smokeless Tobacco: Never Tobacco Cessation:Counseling Given: Not Answered Alcohol Use Standard Drinks/Week Comments Yes 0 (1 standard drink = 0.6 oz pur e alcohol) occasionally Alcohol Answer Date Recorded How often do you have a drink containing alcohol ? 0 01/27/2024 How many drinks containing a lcohol do you have on a typical day when you are drinking? 0 01/27/2024 How often do you have six or more drinks on one occasion? 0 01/27/2024 Depression Answer Date Recorded Patient Health Questionnaire-9 Score 12 12/18/2024 Patient Health Questionnaire-9 Score 12 12/18/2024 Last PHQ-9: Questionnaire Data Not on file 0 12/18/2024 Housing Stability Answer Date Recorded What is your housing situation today? I have christiano denton 06/09/[address] you li ve. Do you have problems with any of the following? None of the above 06/09/2024 Food Insecurity Answer Date Recorded Within the past 12 months, y ou worried that your food would run out before you got money to buy more: Never True 10/26/2023 Within the past 12 months,th e food you bought just didn't last and you didn't have enough money to get more: Never True Transportation Answer Date Recorded In the past 12 months, has l ack of transportation kept you from medical appts, meetings, work or from getting things needed for daily living? Yes, it has kept me from medical appointments or getting medications. 06/09/2024 Utilities Answer Date Recorded In the past 12 months, has t he electric, gas, oil or water company threatened to shut off services in your home? No 10/26/2023 Depression Answer Date Recorded Patient Health Questionnaire-2 Score 3 12/18/2024 Internet Access Answer Date Recorded Internet Access Q1 Yes 12/05/2023 Internet Access Q2 Not on file 12/05/2023 Education Answer Date Recorded What is the highest level of school you have completed or the highest degree you have received? Bachelor's degree (e.g., BA, AB, BS) 06/09/2024 Comments No Sex and Gender Information Value Date Recorded Sex Assigned at Female 08/19/2022 12:01 PM EDT Legal Sex Female 4:19 PM EDT Gender Identity Female 01/30/2022 4:19 PM EDT Sexual Orientation Straight 01/30/2022 4: 19 PM EDT Last Filed Vital Signs Vital Sign Reading Time Taken Comments Blood Pressure 126/84 12/18/2024 11:29 AM EDT Pulse 97 12/18/2024 11:29 AM EDT Temperature 37.1 C (98.8 F) 12/18/2024 11:29 AM EDT Respiratory Rate 17 12/18/2024 11:29 AM EDT Oxygen Saturation 97% 12/18/2024 11:29 AM EDT Inhaled Oxygen Concentration - - Weight 85.5 kg (188 lb 8 oz) 12/18/2024 11:29 AM EDT Height 167.6 cm (5' 6 ) 12/18/2024 11:29 AM EDT Body Mass Index 30.42 12/18/2024 11:29 AM EDT Plan of Treatment Upcoming Encounters Date Type Department Care Team (Late st Contact Info) Description 06/18/2025 11:00 AM EDT Office Visit [facility] [address] [place] [address] Maureen Rodríguez NP [address] [place] [address] Health Maintenance Due Date Last Done Comments RSV Patients and Patients Aged 60 years or older (1 - 1-dose 75+ series) 2021 DTaP/Tdap/Td Vaccines (2 - Td or Tdap) 02/27/2024 02/26/2014 COVID-19 Vaccine ( season) 2024 01/16/2022, 11/10/2021, 12/10/2020, Additional history exists Alcohol/Substance Use Screening 06/09/2025 06/09/2024 SDOH Screening 06/09/2025 06/09/2024 Depression Monitoring 06/17/2025 12/18/2024, 025 Tobacco Screening 12/18/2025 12/18/2024 Lipid Panel 06/09/2029 06/09/2024, 01/16/2022 Hepatitis C Screening Completed 06/09/2024 Zoster Vaccines Completed 06/09/2024, 10/26/2023 Influenza Vaccine Completed 12/18/2024, , 01/16/2022, Additional history exists Pneumococcal Vaccine: 50+ Years Completed 12/18/2024, 10/26/2023, 02/26/2014, Additional history exists HIB Vaccines Aged Out No longer eligi ble based on patient's age to complete this topic HPV Vaccines Aged Out No longer eligi ble based on patient's age to complete this topic Hepatitis A Vaccines Aged Out No long er eligible based on patient's age to complete this topic Hepatitis B Vaccines Aged Out No long er eligible based on patient's age to complete this topic IPV Vaccines Aged Out No longer eligi ble based on patient's age to complete this topic Meningococcal B Vaccine Aged Out No l onger eligible based on patient's age to complete this topic Meningococcal Vaccine Aged Out No jaylene nicolás eligible based on patient's age to complete this topic RSV under 20 months Aged Out No longe r eligible based on patient's age to complete this topic Rotavirus Vaccines Aged Out No longer eligible based on patient's age to complete this topic Procedures Procedure Name Priority Date/Time Associated Diagnosis Comments HEPATITIS C AB W/REFLEX TO HCV QUANT NAAT IF POSITIVE Routine 06/09/2024 3:54 PM EST Screening for viral disease LIPID PANEL, STANDARD Routine 06/09/2024 3:54 PM EST Screening, lipid from Last 3 Months or Most Recently Relevant to Health Maintenance Results * Hepatitis C Ab w/Reflex to HCV Quant NAAT if Positive (06/09/2024 3:54 PM EST) Hepatitis C Antibody Nonreactive Nonreactive 06/09/2024 8:29 PM EST [facility] Blood Venous blood specimen / Unknown 06/09/2024 3:54 PM EST 06/09/2024 7:05 PM EST [facility] - 06/09/2024 8:29 PM EST A Nonreactive result does not exclude exposure or infection with HCV as antibody levels can be below detectable limits. A Reactive result may be due to antibodies to HCV recombinant antigens which are unrelated to HCV infection. More specific testing should be considered if clinically indicated. us Maureen Rodríguez NP LAB BLOOD ORDERABLES Final R esult [facility] [phone] [facility] [address] [place] [id number] * (ABNORMAL) Lipid Panel, Standard (06/09/2024 3:54 PM EST) Cholesterol, Total 246(H) <200 mg/dL 06/09/2024 8:08 PM EST [facility] Triglycerides 66 <150 mg/dL 06/09/2024 8:08 PM EST [facility] HDL Cholesterol 94.0 >=60.0 mg/dL 06/09/2024 8:08 PM EST [facility] LDL Cholesterol Calculated 139(H) 0 - 100 mg/dL 06/09/2024 8:08 PM EST [facility] Cardiac Risk Factor 2.6 0.0 - 4.4 06/09/2024 8:08 PM EST [facility] Blood Venous blood specimen / Unknown 06/09/2024 3:54 PM EST 06/09/2024 7:06 PM EST Narrative [facility] - 06/09/2024 8:08 PM EST Cardiac Risk Factor: Males Females 2x Average Risk 9.6 7.1 3x Average Risk 23.4 11.0 Maureen Rodríguez NP LAB BLOOD ORDERABLES Final R esult [facility] [phone] [facility] [address] [place] [address] from Last 3 Months or Most Recently Relevant to Health Maintenance Insurance [facility] STANDARD [employer] MEDICARE REPLACEMENT Care Teams Mechanical Expert Relationship Specialty Start Date End Date Maureen Rodríguez NP [address] [place] [address] PCP - General Family Medicine 10/26/23
[2025-03-21 21:24] LABS: Folate 4.5 ng/mL (> or = 4.0); Vitamin B12 364 pg/mL (200-900)
[2025-03-21 22:33] VITALS: BP 130/63; PULSE 55; RESP 13; TEMP 36.9; O2SAT 97
[2025-03-22] VITALS (7 sets, daily range): BP systolic 151–198; BP diastolic 70–90; PULSE 51–74; RESP 15–20; TEMP 36.2–37.1; O2SAT 97–100; BMI 31.5
--- NOTE | 2025-03-22 | EEG_ITS ---
History: H/O HTN, schizoaffective, breast and endometrial cancer in remission presented with difficulty speaking , somewhat confused, complain of right-sided numbness or weakness- pt is fatigued and hypertensive at this time- CT of brain showed no acute intracranial abnormalities Medications: Acetaminophen, Aspirin, Atorvastatin Calcium, Calcium Carbonate, Cyanocobalamin, Enoxaparin Sodium, Folic Acid, Gabapentin, Magnesium Hydroxide, Melatonin, Quetiapine Fumarate, Risperidone Technical Description Photic Stimulation: Completed Hyperventilation: Omitted Behavioral State:fatigued- kept dozing off State of Consciousness: awake and asleep Skull Defect: no Sedation: no Handedness:Right Duration: 28 mins 15 secs Description: This is a 16 channel EEG with an EKG lead. Patient is reported awake and asleep during the tracing. Background EEG rhythm is mostly in theta range low to medium amplitude with no obvious asymmetry or paroxysmal tendency. Photic stimulation does not produce any significant driving. Hyperventilation is not performed. Cardiac lead does not reveal any significant abnormality. No sharp wave spikes or paroxysmal tendency noted. Impression: Generalized slowing with no epileptic discharges MTDD
[2025-03-22] MEDS: 0.9 % Sodium Chloride Flush 3 ML SYRINGE IVFLUSH ×2 (04:17→16:24)
[2025-03-22 04:41] LABS: Hematocrit 32.3 % (37.0-47.0); Hemoglobin 10.7 g/dl (12.0-16.0); Mean Corpuscular HGB Conc 33.1 g/dl (31.0-35.0); Mean Corpuscular Hemoglobin 35.3 pg (27.0-33.0); Mean Corpuscular Volume 106.6 fL (80.0-98.0); NRBC Abs Auto 0.000 X10*3/uL (0.0-0.012); NRBC Pct Auto 0.0 /100WBC (0.0-0.2); Platelet Count 152 X10*3/uL (160-400); Red Blood Count 3.03 X10*6/uL (4.20-5.50); White Blood Count 2.6 X10*3/uL (4.8-10.8)
[2025-03-22 04:57] LABS: Alanine Aminotransferase 7 U/L (0-31); Albumin Level 3.2 g/dL (3.5-5.0); Alkaline Phosphatase 67 U/L (39-117); Anion Gap 10 (12-20); Aspartate Amino Transferase 16 U/L (5-31); Blood Urea Nitrogen 11 mg/dL (9-16); Calcium 9.0 mg/dL (8.4-10.2); Carbon Dioxide 25 mmol/L (22-29); Chloride 113 mmol/L (96-108); Creatinine Clr Calc Pharmacy 75.1; Estimated Glomerular Filt Rate > 60; Magnesium 1.7 mg/dL (1.6-2.6); Potassium 3.3 mmol/L (3.3-5.1); Sodium 145 mmol/L (135-145); Total Protein 5.9 g/dL (6.5-8.0)
--- NOTE | 2025-03-22 07:00 | CA_ITS ---
Transthoracic Echocardiogram Patient (Last, First, Middle): Dahlia Scott D Gender: Female Date of : 1945 Age: 80 Procedure Date: 03/22/2025 Procedure Type: Transthoracic Echocardiogram Location: [facility] [place] Height: 167.64 cm Weight: 88. 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 There is moderately increased left ventricular wall thickness. The visually estimated ejection fraction is between 60-65%. There is no evidence of regional wall motion abnormalities. Diastolic function is normal for age. - Normal right ventricular cavity size and systolic function. - There is no evidence of interatrial shunt by color Doppler. - There is mild calcification of the aortic valve. - Mild pulmonary hypertension is present. Findings Left Ventricle Normal left ventricular size and systolic function. There is moderately increased left ventricular wall thickness. The visually estimated ejection fraction is between 60-65%. There is no evidence of regional wall motion abnormalities. Diastolic function is normal for age. Right Ventricle Normal right ventricular cavity size and systolic function. Atria The left atrium is normal in size. There is no evidence of interatrial shunt by color Doppler. The right atrium is normal in size. Aortic Valve There is a normal trileaflet aortic valve. There is mild calcification of the aortic valve. There is no aortic valve stenosis. There is mild aortic valve regurgitation. Mitral Valve The mitral valve appears normal. There is mild mitral valve regurgitation. There is no mitral valve stenosis. Tricuspid Valve Normal tricuspid valve structure. There is trace tricuspid valve regurgitation. The right ventricular systolic pressure is 38 mmHg. Normal right atrial pressure. Mild pulmonary hypertension is present. Great Vessels All visible segments of the aorta are normal in size. Venous The inferior vena cava is normal in size and collapses greater than 50% with inspiration. Pericardium/Pleural There is no evidence of pericardial effusion. Prior Study Comparison No prior study available for comparison. Measurements 2D Linear Measurements IVSd: 1.23 0.6-0.9/0.6-1.0 cm LVIDd: 4.85 3.9-5.3/4.2-5.9 cm LVIDd Index: 2.46 2.4-3.2/2.2-3.1 cm/m2 LVIDs: 2.83 2.0-3.6 cm LVPWd: 1.23 0.7-1.1 cm Ao Root: 3.20 2.1-3.5 cm LA Diam: 3.50 2.7-3.8/3.0-4.0 cm LAIDs Index: 1.78 1.5-2.3 cm/m2 LV Mass: 287.60 67-162/88-224 g LV Mass Index: 145.99 43-95/49-115 g/m2 LVOT Diam: 2.10 3.0+(-)1.3 cm Mitral Valve MV Pk E: 0.57 MV PK A: 0.75 MV Decel Time: 151.00 E/A: 0.80 E'Lateral: 10.30 E'Medial: 6.31 E/E' Med: 9.10 E/E' Lat: 5.60 PHT: 44.00 MVA PHT: 5.00 Decel [place]: 3.80 Aortic Valve AoV Pk Art: 1.45 AoV Mn Art: 0.95 AoV VTI: 0.38 AoV Pk Grad: 8.00 Aov Mn Grad: 4.00 CAMILO Cont.VTI: 2.60 AI Pk Art: 4.30 AI [place]: 2.10 LVOT LVOT Pk Art: 1.10 LVOT Mn Art: 0.65 LVOT VTI: 0.29 LVOT Pk Grad: 5.00 LVOT Mn Grad: 2.00 LVOT Diam: 2.10 LVOT Area: 3.46 Diastolic Function MV Pk E: 0.57 MV Pk A: 0.75 E/A: 0.80 E'Medial: 6.31 E/E' Med: 9.10 E' Laterial: 10.30 E/E' Lat: 5.60 Right Ventricle TAPSE (mm): 24.00 TVS' Art: 17.00 Tricuspid Valve TR Pk Art: 2.95 TR Pk Grad: 35.00 RA Press: 3.00 RVSP: 38.00 Great Vessels Aorta Ao Root-2D: 3.20 2.0-3.7 cm Ao Asc: 3.30 2.1-3.4 cm Pulmonary Valve PV Pk Art: 0.74 Peak PV Grad: 2.00 Updated in Other Vendor System with Status of Final Phong Lopes MD electronically signed on 03/22/2025 1:09:07 PM with status of Final
[2025-03-22] MEDS: Aspirin Enteric Coated 81 MG TABLET.DR PO (09:37)
--- NOTE | 2025-03-22 10:40 | PM.NEUROCN ---
History of Present Illness Data of Consult Service Date: 03/22/25 Primary Care Provider: Unknown Physician [facility] Reason for consult: Episode of difficulty speaking 80M PMH HTN, schizoaffective, breast and endometrial cancer in remission presented with difficulty speaking. She said that she was somewhat confused and did not remember the whole event. She has also complain of right-sided numbness or weakness. Now she was feeling better. There was no associated headache. She did not have similar symptoms in the past. There was no recent history of trauma or cold or fever, chest pain, shortness of breath, or rash Review of Systems Constitutional: Constitutional: Reports as per HPI [facility] Past Medical History Medical History (Updated 03/22/25 @ 10:44 by Óscar Kohler MD) Hypertension Social History Social History Household Members: None Housing: Apartment Do you presently have visiting nurse or other home services: Yes Patient Tobacco Use Status: Never used Tobacco Smoked in Last 30 Days: No Use of substances other than those prescribed or required for medical reasons: No Have you been hit, kicked, punched, or otherwise hurt by someone within the past year? If so, by whom?: No Do you feel safe in your current relationship?: No Is there a partner from a previous relationship who is making you feel unsafe now?: No Are you made to feel afraid or neglected: No Advance Directives: No Advance Directives Information Provided: No Advance Directives on File: No Do you have a plan to hurt others: No Plan Recently lost weight without trying: Yes How much weight loss: 2-13 pounds Eating poorly because of decreased appetite: No Nutrition screen score: 3 Nutrition Risks: No Nutritional Risk Patient : No : No Poor oral hygiene: No Meds Allergies Allergy/AdvReac Type Severity Reaction Status Date / Time No Known Allergies Allergy Verified 03/21/25 15:33 Active Medications: Current Medications Acetaminophen (Acetaminophen 325 Mg Tablet) 650 mg PO Q6H PRN PRN Reason: Pain, Mild 1-3,fever,headache Aspirin (Aspirin Enteric Coated 81 Mg Tablet.) 81 mg PO DAILY [facility] Last Admin: 03/22/25 09:37 Dose: 81 mg Atorvastatin Calcium (Atorvastatin Calcium 80 Mg Tablet) 80 mg PO BEDTIME [facility] Last Admin: 03/21/25 20:46 Dose: 80 mg Calcium Carbonate (Calcium Carbonate 750 Mg Tab.Chew) 750 mg PO Q4H PRN PRN Reason: Heartburn Cyanocobalamin (Cyanocobalamin (Vitamin B-12) 1,000 Mcg Tablet) 1,000 mcg PO DAILY [facility] Last Admin: 03/22/25 09:37 Dose: 1,000 mcg Enoxaparin Sodium (Enoxaparin Sodium 40 Mg/0.4 Ml Syringe) 40 mg SUBCUT Q24H [facility] Last Admin: 03/22/25 09:40 Dose: 40 mg Folic Acid (Folic Acid 1 Mg Tablet) 1 mg PO DAILY [facility] Last Admin: 03/22/25 09:37 Dose: 1 mg Gabapentin (Gabapentin 600 Mg Tablet) 600 mg PO TID [facility] Last Admin: 03/22/25 09:37 Dose: 600 mg Magnesium Hydroxide (Milk Of Magnesia 30 Ml Oral.Susp) 30 ml PO DAILY PRN PRN Reason: Constipation Magnesium Hydroxide (Milk Of Magnesia 30 Ml Oral.Susp) 30 ml PO DAILY PRN PRN Reason: Constipation Melatonin (Melatonin 3 Mg Tablet) 6 mg PO BEDTIME PRN PRN Reason: Insomnia Quetiapine Fumarate (Quetiapine Fumarate 200 Mg Tablet) 200 mg PO BID [facility] Last Admin: 03/22/25 09:37 Dose: 200 mg Risperidone (Risperidone 2 Mg Tablet) 2 mg PO BID [facility] Last Admin: 03/22/25 09:37 Dose: 2 mg Sodium Chloride (0.9 % Sodium Chloride Flush 3 Ml Syringe) 3 ml IVFLUSH QSHIFT [facility] Last Admin: 03/22/25 04:17 Dose: 3 ml Home Medications ?Medication ?Instructions ?Recorded ?Confirmed ?Last Taken ?Type amlodipine 2.5 mg tablet 2.5 mg PO DAILY 03/21/25 03/21/25 03/21/25 History aspirin 81 mg tablet 81 mg PO DAILY 03/21/25 03/21/25 03/21/25 History atorvastatin 40 mg tablet 40 mg PO DAILY 03/21/25 03/21/25 03/21/25 History gabapentin 600 mg tablet 600 mg PO TID 03/21/25 03/21/25 03/21/25 History quetiapine 400 mg tablet,extended 400 mg PO BEDTIME 03/21/25 03/21/25 03/20/25 History release 24 hr risperidone 2 mg tablet 2 mg PO BID 03/21/25 03/21/25 03/21/25 History Physical Exam Vital Signs: Vital Signs: Last Vital Signs Temp 97.8 F 03/22/25 09:26 Pulse 74 03/22/25 09:26 Resp 20 03/22/25 09:26 BP 171/81 H 03/22/25 09:26 Pulse Ox 99 03/22/25 09:26 O2 Del Method Room Air 03/22/25 09:26 BMI result Body Mass Index 31.5 Neuro: Other: Mental Status: Alert and oriented to person, place, and time. Normal attention. Normal spontaneous speech, fluency, and comprehension. Cranial Nerves: CN II: Visual scott full to confrontation, visual acuity intact. CN III, IV, : Pupils equal, round, reactive to light and accommodation. Extraocular movements are normal. CN V: Facial sensation is normal. CN VII: Facial movements symmetrical. CN VIII: Hearing intact to bedside conversation is normal. CN IX, X: Palate elevates symmetrically. CN XI: Shoulder shrug and head turn symmetrical. CN XII: Tongue midline without atrophy or fasciculations. Motor: No obvious focal arm or leg weakness. Reflexes: Deep tendon reflexes are trace to absent with flexor plantars. Coordination: [id number] testing is okay Extrapyramidal: Full facial expressions and blinking. No rigidity. Movements are appropriate with no tremor or abnormality. Speech: Normal; no dysarthria or tremor. Results Labs 03/22/25 04:30 03/22/25 04:30 Labs: Short CBC 03/21/25 03/22/25 Range/Units 15:21 04:30 WBC 3.3 L 2.6 L (4.8-10.8) X10*3/uL Hgb 12.0 10.7 L (12.0-16.0) g/dl Hct 35.8 L 32.3 L (37.0-47.0) % Plt Count 167 152 L (160-400) X10*3/uL BMP 03/21/25 03/22/25 15:36 04:30 Sodium 145 145 Potassium 3.5 3.3 Chloride 110 H 113 H Carbon Dioxide 28 25 BUN 8 L 11 Creatinine 0.66 0.68 Calcium 9.9 9.0 D Liver Function 03/21/25 03/22/25 Range/Units 15:36 04:30 Total Bilirubin 0.5 0.4 (0.0-1.0) mg/dL Direct Bilirubin 0.2 0.2 (0.0-0.5) mg/dL AST 21 16 (5-31) U/L ALT 10 7 (0-31) U/L Alkaline Phosphatase 78 67 (39-117) U/L Albumin 3.8 3.2 L (3.5-5.0) g/dL CLINICAL HISTORY: right sided weakness Exam: Nonenhanced MRI brain. Comparison: CT brain performed the same day. Findings: There is no cerebral edema or mass effect. White matter reveals multifocal areas of T2 hyperintensity common nonspecific although likely sequela of chronic microangiopathic disease. Diffusion weighted imaging reveals no restricted diffusion or MR evidence of acute ischemia. Susceptibility weighted imaging reveals no susceptibility artifact or evidence of intracranial hemorrhage. No sellar or parasellar lesions. Ventricular size and configuration are within normal limits. Cerebral cisterns are preserved. A right maxillary sinus retention cyst is present. No other significant signal abnormality seen within the paranasal sinuses or mastoid air cells. Preserved flow signal voids are present within visualized intracranial vasculature. Impression: 1. No acute intracranial abnormalities. [place] [id number] CT Scan Report Signed Patient: Dahlia Scott MR#: [id number] : 1945 Acct:[id number] Age/Sex: 80 / F ADM Date: 03/21/25 Loc: .ED Attending Dr: Ordering Physician: Antoine Chan MD Date of Service: 03/21/25 Procedure(s): CT angio head neck STROKE Accession Number(s): [id number] cc: Antoine Chan MD~ Report Number: [id number]: Total DLP = 701.00 mGy-cm Reason for Exam: Stroke Protocol EXAMINATION: CTA NECK WITH CONTRAST (STROKE) CTA BRAIN WITH CONTRAST (STROKE) CLINICAL INFORMATION: Suspect acute stroke. Assess for major vessel occlusion. Please call report. COMPARISON: Correlated to CT brain dated March 21, 2025. TECHNIQUE: CTA of the head and neck was performed in the axial plane from the mediastinum to the skull vertex using 70 mL Omnipaque 350 intravenous contrast. Additional reformatted multiplanar images including maximum intensity projection MIP images are generated on the CT workstation. This CT examination was performed using dose optimization techniques as appropriate, variously including the following: *Automated exposure control *Adjustment of mA and/or kV according to patient size (this includes techniques or standardized protocols for targeted exams where dose is matched to indication/reason for exam; i.e. extremities or head) *Use of iterative reconstruction technique DLP: 701 mGy-cm FINDINGS: The degree of stenosis determined by criteria similar to NASCET. Chest CTA: No aneurysm or dissection in the included aortic arch. Calcified plaque in the origin of the left subclavian artery. Neck CTA: Right CCA: Tortuosity. Normal patency. No focal stenosis. No intimal flap. Right ICA: Calcified plaque. Normal patency. No focal stenosis. No intimal flap. Left CCA: Normal patency. No focal stenosis. No intimal flap. Tortuosity in the proximal segment. Left ICA: Calcified plaque representing less than 50% stenosis. Normal patency. No intimal flap. V1/V2 segments: Normal patency. No focal stenosis. No intimal flap. Codominant. Both orientating from the subclavian arteries. Brain CTA: Anterior cerebral circulation: ICAs: Calcified plaque. Normal patency. No focal stenosis. No abrupt cut off. No gross vascular abnormality. MCA's: Normal patency. No focal stenosis. No abrupt cut off. Bifurcation/trifurcation demonstrated no vascular abnormality. Ophthalmic arteries are patent without gross abnormality at the origin. ACAs: Normal patency. No focal stenosis. No abrupt cut off. Anterior communicating artery is patent. Posterior communicating arteries are patent. No vascular irregularity. Posterior cerebral circulation: V3/V4 segments: Normal patency. No focal stenosis. No intimal flap. Posterior inferior cerebral arteries are patent without gross abnormality. Basilar artery is patent without focal stenosis or intimal flap. Right anterior inferior cerebral arteries patent without gross abnormality. Superior cerebellar arteries are patent without gross abnormality. public health officer: Normal patency. No focal stenosis. No abrupt cut off. Hypoplastic right P1 segment. Ancillary findings: There is a 16 x 10 mm partially calcified extra-axial soft tissue lesion posterior to the left petrous bone and above the vestibular aqueduct. Absent nasal septum. Edentulous, maxilla and mandible. Large retention cyst, right maxillary sinus. Poor pneumatization right frontal sinus. Pulmonary mosaic pattern. Multilevel cervical spondylosis., CT/CT angio head neck STROKE IMPRESSION: No main cerebral artery occlusion or embolus or gross aneurysm. No dissection. Calcified plaques, left ICA. 16 x 10 mm extra-axial partially calcified mass in the left posterior cranial fossa. Consider partially calcified meningioma versus endolymphatic sac tumor. 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 Assessment and Plan (1) Seizure disorder: Status: Acute 80 years old woman with moderate chronic microvascular ischemic changes and [id number] cerebral atrophy presented with an episode of confusion or difficulty speaking with no evidence of acute lesion on brain MRI. Likely explanation is seizure disorder an EEG is recommended. Procedures Date of Service Date of Service: 03/22/25
--- NOTE | 2025-03-22 10:41 | HO.PM.IMPN ---
Subjective Subjective Date of Service: 03/22/25 Interval History: speech better, ongoing weakness Physical Exam Exam: Exam: General: AO X 3, no acute distress Resp: CTA bilateral, no accessory muscles used CVS: S1,S2,RRR GI: soft, non tender, non distended Neuro: grossly weak bilateral, alert Psych: appropriate affect, appropriate insight Vital Signs: Vital Signs: Last Vital Signs Temp 97.8 F 03/22/25 09:26 Pulse 74 03/22/25 09:26 Resp 20 03/22/25 09:26 BP 171/81 H 03/22/25 09:26 Pulse Ox 99 03/22/25 09:26 O2 Del Method Room Air 03/22/25 09:26 BMI result Body Mass Index 31.5 Objective Data Active Medications Acetaminophen (Acetaminophen 325 Mg Tablet) 650 mg PO Q6H PRN PRN Reason: Pain, Mild 1-3,fever,headache Aspirin (Aspirin Enteric Coated 81 Mg Tablet.Dr) 81 mg PO DAILY [facility] Last Admin: 03/22/25 09:37 Dose: 81 mg Documented By: MARI Atorvastatin Calcium (Atorvastatin Calcium 80 Mg Tablet) 80 mg PO BEDTIME [facility] Last Admin: 03/21/25 20:46 Dose: 80 mg Documented By: MARVA Calcium Carbonate (Calcium Carbonate 750 Mg Tab.Chew) 750 mg PO Q4H PRN PRN Reason: Heartburn Cyanocobalamin (Cyanocobalamin (Vitamin B-12) 1,000 Mcg Tablet) 1,000 mcg PO DAILY [facility] Last Admin: 03/22/25 09:37 Dose: 1,000 mcg Documented By: MARI Enoxaparin Sodium (Enoxaparin Sodium 40 Mg/0.4 Ml Syringe) 40 mg SUBCUT Q24H [facility] Last Admin: 03/22/25 09:40 Dose: 40 mg Documented By: MARI Folic Acid (Folic Acid 1 Mg Tablet) 1 mg PO DAILY [facility] Last Admin: 03/22/25 09:37 Dose: 1 mg Documented By: MARI Gabapentin (Gabapentin 600 Mg Tablet) 600 mg PO TID [facility] Last Admin: 03/22/25 09:37 Dose: 600 mg Documented By: MARI Magnesium Hydroxide (Milk Of Magnesia 30 Ml Oral.Susp) 30 ml PO DAILY PRN PRN Reason: Constipation Magnesium Hydroxide (Milk Of Magnesia 30 Ml Oral.Susp) 30 ml PO DAILY PRN PRN Reason: Constipation Melatonin (Melatonin 3 Mg Tablet) 6 mg PO BEDTIME PRN PRN Reason: Insomnia Quetiapine Fumarate (Quetiapine Fumarate 200 Mg Tablet) 200 mg PO BID [facility] Last Admin: 03/22/25 09:37 Dose: 200 mg Documented By: MARI Risperidone (Risperidone 2 Mg Tablet) 2 mg PO BID [facility] Last Admin: 03/22/25 09:37 Dose: 2 mg Documented By: MARI Sodium Chloride (0.9 % Sodium Chloride Flush 3 Ml Syringe) 3 ml IVFLUSH QSHIFT [facility] Last Admin: 03/22/25 04:17 Dose: 3 ml Documented By: MARVA Labs 03/22/25 04:30 03/22/25 04:30 Labs: Laboratory Results - last 24 hr 03/21/25 03/21/25 03/21/25 15:12 15:20 15:21 MCV 107.8 H MCH 36.1 H MCHC 33.5 RDW 15.0 Plt Count 167 MPV 10.4 Immature Gran % (Auto) 0.3 Neut % (Auto) 53.1 Lymph % (Auto) 37.3 Tucker % (Auto) 4.8 Eos % (Auto) 3.9 Baso % (Auto) 0.6 Lymph # (Auto) 1.2 Tucker # (Auto) 0.2 Eos # (Auto) 0.1 Baso # (Auto) 0.0 Abs Immat Gran (auto) 0.01 Absolute Neuts (auto) 1.8 L Absolute Nucleated RBC 0.000 Nucleated RBC % (auto) 0.0 PT Whole Blood PT 12.8 INR Whole Blood INR 1.1 APTT Anion Gap Estim Creat Clear Calc Estimated GFR POC Glucose 95 Random Glucose Estimat Average Glucose 82 Hemoglobin A1c % 4.5 Calcium Magnesium Total Bilirubin Direct Bilirubin AST ALT Alkaline Phosphatase Troponin I High Sens < 2.7 Total Protein Albumin Triglycerides Cholesterol LDL Cholesterol, Calc HDL Cholesterol Vitamin B12 Folate TSH 03/21/25 03/21/25 03/21/25 15:34 15:36 20:26 MCV MCH MCHC RDW Plt Count MPV Immature Gran % (Auto) Neut % (Auto) Lymph % (Auto) Tucker % (Auto) Eos % (Auto) Baso % (Auto) Lymph # (Auto) Tucker # (Auto) Eos # (Auto) Baso # (Auto) Abs Immat Gran (auto) Absolute Neuts (auto) Absolute Nucleated RBC Nucleated RBC % (auto) PT 12.7 Whole Blood PT INR 1.0 Whole Blood INR APTT 27.8 Anion Gap 11 L Estim Creat Clear Calc 77.4 Estimated GFR > 60 POC Glucose Random Glucose 91 Estimat Average Glucose Hemoglobin A1c % Calcium 9.9 Magnesium 1.7 Total Bilirubin 0.5 Direct Bilirubin 0.2 AST 21 ALT 10 Alkaline Phosphatase 78 Troponin I High Sens Total Protein 7.0 Albumin 3.8 Triglycerides 62 Cholesterol 249 H LDL Cholesterol, Calc 160 H HDL Cholesterol 77 Vitamin B12 364 Folate 4.5 TSH 0.68 03/22/25 04:30 MCV 106.6 H MCH 35.3 H MCHC 33.1 RDW 14.6 Plt Count 152 L MPV 9.7 Immature Gran % (Auto) Neut % (Auto) Lymph % (Auto) Tucker % (Auto) Eos % (Auto) Baso % (Auto) Lymph # (Auto) Tucker # (Auto) Eos # (Auto) Baso # (Auto) Abs Immat Gran (auto) Absolute Neuts (auto) Absolute Nucleated RBC 0.000 Nucleated RBC % (auto) 0.0 PT Whole Blood PT INR Whole Blood INR APTT Anion Gap 10 L Estim Creat Clear Calc 75.1 Estimated GFR > 60 POC Glucose Random Glucose 101 Estimat Average Glucose Hemoglobin A1c % Calcium 9.0 D Magnesium 1.7 Total Bilirubin 0.4 Direct Bilirubin 0.2 AST 16 ALT 7 Alkaline Phosphatase 67 Troponin I High Sens Total Protein 5.9 L Albumin 3.2 L Triglycerides Cholesterol LDL Cholesterol, Calc HDL Cholesterol Vitamin B12 Folate TSH Assessment and Plan (1) Hypertension: Status: Acute Plan 80M PMH HTN, schizoaffective, breast and endometrial cancer in remission presented with expressive aphasia Expressive aphasia lower extremity weakness, ? peripheral neuropathy mri negative Check echo, neuro eval, PT OT recommending acute rehab Aspirin, statin Hypertension Permissive hypertension Schizoaffective Risperdal History of breast and endometrial cancer In remission Macrocytositic pancytopenia Possibly due to alcohol use, drinks about 2 bottles of wine per week, vs MDS b12, folate wnl hematology eval DVT prophylaxis Lovenox full code reason for continued hospitalization:ongiong neuro symptoms, neuro eval and further work up pending Quality Stroke Does the patient have a stroke diagnosis?: Yes Reason for No Anti-thrombotic by Day Two: N/A - Med Ordered VTE Prior VTE?: No VTE Risk Level:: Medical - moderate - high VTE Device Contraindication: Treatment Not Indicated VTE Drug Contraindication: N/A - Med Ordered
--- NOTE | 2025-03-22 10:51 | MHC.CM.PN ---
CM attempted to meet with Patient; she did not appear able to participate in Admission Assessment. ALONSO left a detailed message for Only Contact/Sister/Jai @ listed #;CM await a return call from Jai.
--- NOTE | 2025-03-22 11:59 | MHC.CM.PN ---
CM attempted to meet with Patient again but was unable to engage Patient in conversation.
--- NOTE | 2025-03-22 12:06 | PC.NURSE ---
Addendum entered by Keyla Welsh RN 03/22/25 16:38: Amlodipine added by provider. Original Note: Provider notified of BP 187/80 with HR 52. Provider allowing permissive hypertension. No intervention at this time.
--- NOTE | 2025-03-22 12:19 | MHC.CM.PN ---
CM spoke with Sister/HCP/Jai @ [phone] and addressed IMM with her. Patient lives alone and was visiting family for the holidays. PT is recommending Acute Rehab and CM has initiated and will follow for dc planning. PCP is Dr. Maureen Rodríguez and Patient is likely to require BLS transport at dc.
--- NOTE | 2025-03-22 16:38 | PC.NURSE ---
Pt BP 198/90, rechecked manually at 168/70. Provider notified. Losartan added and given as ordered.
[2025-03-22 22:21] LABS: Cannabinoid Screen Urine POSITIVE (Not Detect)
[2025-03-23] VITALS (7 sets, daily range): BP systolic 134–160; BP diastolic 65–76; PULSE 60–91; RESP 18; TEMP 36.4–36.8; O2SAT 95–98
--- NOTE | 2025-03-23 | ECG_ITS ---
Test Reason : tachycardia Blood Pressure : */* mmHG Vent. Rate : 107 BPM Atrial Rate : 107 BPM P-R Int : 158 ms QRS Dur : 76 ms QT Int : 352 ms P-R-T Axes : 35 -41 62 degrees QTcB Int : 469 ms Sinus tachycardia Left axis deviation Minimal voltage criteria for LVH, may be normal variant ( R in aVL ) Possible Lateral infarct , age undetermined Abnormal ECG When compared with ECG of 21-Mar-2025 16:01, Significant changes have occurred Referred By: Shivam Jaramillo Electronically Signed By: Phong Lopes
[2025-03-23] MEDS: Aspirin Enteric Coated 81 MG TABLET.DR PO (08:35)
[2025-03-23] MEDS: 0.9 % Sodium Chloride Flush 3 ML SYRINGE IVFLUSH ×2 (08:35→19:57)
--- NOTE | 2025-03-23 09:23 | P.PNIM_ITS ---
Subjective Subjective Date of Service: 03/23/25 Interval History: unchanged Physical Exam 2 Exam: Exam: General: AO X 3, no acute distress Resp: CTA bilateral, no accessory muscles used CVS: S1,S2,RRR GI: soft, non tender, non distended Neuro: grossly weak bilateral, alert Psych: appropriate affect, appropriate insight Vital Signs: Vital Signs: Last Vital Signs Temp 98 F 03/23/25 07:53 Pulse 60 03/23/25 07:53 Resp 18 03/23/25 07:53 BP 134/72 03/23/25 07:53 Pulse Ox 98 03/23/25 07:53 O2 Del Method Room Air 03/23/25 07:53 BMI result Body Mass Index 31.5 Objective Data Active Medications Acetaminophen (Acetaminophen 325 Mg Tablet) 650 mg PO Q6H PRN PRN Reason: Pain, Mild 1-3,fever,headache Amlodipine Besylate (Amlodipine Besylate 2.5 Mg Tablet) 2.5 mg PO DAILY [facility]; Protocol Last Admin: 03/23/25 08:35 Dose: 2.5 mg Documented By: SHARAN Aspirin (Aspirin Enteric Coated 81 Mg Tablet.) 81 mg PO DAILY [facility] Last Admin: 03/23/25 08:35 Dose: 81 mg Documented By: SHARAN Atorvastatin Calcium (Atorvastatin Calcium 80 Mg Tablet) 80 mg PO BEDTIME [facility] Last Admin: 03/22/25 21:19 Dose: 80 mg Documented By: ARMANDO Calcium Carbonate (Calcium Carbonate 750 Mg Tab.Chew) 750 mg PO Q4H PRN PRN Reason: Heartburn Cyanocobalamin (Cyanocobalamin (Vitamin B-12) 1,000 Mcg Tablet) 1,000 mcg PO DAILY [facility] Last Admin: 03/23/25 08:35 Dose: 1,000 mcg Documented By: SHARAN Enoxaparin Sodium (Enoxaparin Sodium 40 Mg/0.4 Ml Syringe) 40 mg SUBCUT Q24H [facility] Last Admin: 03/22/25 09:40 Dose: 40 mg Documented By: MARI Folic Acid (Folic Acid 1 Mg Tablet) 1 mg PO DAILY [facility] Last Admin: 03/23/25 08:35 Dose: 1 mg Documented By: SHARAN Gabapentin (Gabapentin 600 Mg Tablet) 600 mg PO TID [facility] Last Admin: 03/23/25 08:35 Dose: 600 mg Documented By: SHARAN Losartan Potassium (Losartan Potassium 25 Mg Tablet) 25 mg PO DAILY [facility]; Protocol Last Admin: 03/23/25 08:35 Dose: 25 mg Documented By: SHARAN Magnesium Hydroxide (Milk Of Magnesia 30 Ml Oral.Susp) 30 ml PO DAILY PRN PRN Reason: Constipation Magnesium Hydroxide (Milk Of Magnesia 30 Ml Oral.Susp) 30 ml PO DAILY PRN PRN Reason: Constipation Melatonin (Melatonin 3 Mg Tablet) 6 mg PO BEDTIME PRN PRN Reason: Insomnia Quetiapine Fumarate (Quetiapine Fumarate 200 Mg Tablet) 200 mg PO BID [facility] Last Admin: 03/23/25 08:35 Dose: 200 mg Documented By: SHARAN Risperidone (Risperidone 2 Mg Tablet) 2 mg PO BID [facility] Last Admin: 03/23/25 08:35 Dose: 2 mg Documented By: SHARAN Sodium Chloride (0.9 % Sodium Chloride Flush 3 Ml Syringe) 3 ml IVFLUSH QSHIFT [facility] Last Admin: 03/23/25 08:35 Dose: 3 ml Documented By: SHARAN Labs 03/22/25 04:30 03/22/25 04:30 Labs: Laboratory Results - last 24 hr 03/22/25 21:45 Urine Opiates Screen Not Detected Ur Buprenorphine Scrn Not Detected Ur Oxycodone Screen Not Detected Urine Methadone Screen Not Detected Urine Fentanyl Screen Not Detected Ur Barbiturates Screen Not Detected Ur Phencyclidine Scrn Not Detected Ur Amphetamines Screen Not Detected U Benzodiazepines Scrn Not Detected Urine Cocaine Screen Not Detected U Marijuana (THC) Screen POSITIVE H Assessment and Plan (1) Hypertension: Status: Acute Plan 80M PMH HTN, schizoaffective, breast and endometrial cancer in remission presented with expressive aphasia Expressive aphasia lower extremity weakness, ? peripheral neuropathy mri negative echo with some LVH, PT OT recommending acute rehab Aspirin, statin eeg negative for seizure Hypertension Permissive hypertension Schizoaffective Risperdal History of breast and endometrial cancer In remission Macrocytositic pancytopenia Possibly due to alcohol use, drinks about 2 bottles of wine per week, vs MDS b12, folate low normal doubt cause but will start supplement hematology eval DVT prophylaxis Lovenox full code reason for continued hospitalization: hem eval pending, dc planning Quality Stroke Does the patient have a stroke diagnosis?: Yes Reason for No Anti-thrombotic by Day Two: N/A - Med Ordered VTE Prior VTE?: No VTE Risk Level:: Medical - moderate - high VTE Device Contraindication: Treatment Not Indicated VTE Drug Contraindication: N/A - Med Ordered
[2025-03-23 12:36] LABS: Reticulocytes Absolute 0.061 X10*6/uL (0.026-0.095)
--- NOTE | 2025-03-23 12:59 | MHC.CM.PN ---
CM met with Patient to discuss PT's recommendation for rehab (Patient was denied admission to the 3 area acute rehabs); Patient accepted a bed offer from [facility] and they are initiating insurance auth today.
[2025-03-24 03:57] VITALS: BP 146/76; PULSE 80; RESP 18; TEMP 36.7; O2SAT 95
[2025-03-24 07:31] VITALS: BP 150/76; PULSE 75; RESP 18; TEMP 36.6; O2SAT 95
--- NOTE | 2025-03-24 08:56 | MHC.CM.PN ---
Per MD patient medically cleared for dc to [facility]. [facility] has auth. BLS transport scheduled for 11am. , RN and patient aware.
[2025-03-24] MEDS: Aspirin Enteric Coated 81 MG TABLET.DR PO (09:19)
[2025-03-24] MEDS: 0.9 % Sodium Chloride Flush 3 ML SYRINGE IVFLUSH (09:21)
--- NOTE | 2025-03-24 10:36 | PM.DS ---
DS: Providers Provider Date of admission: 03/21/25 16:27 Date of discharge: 03/24/25 Primary care physician: Unknown Physician Consults: 03/21/25 16:27 Consult to Neurology Routine Consulting Provider: Gillian Marquez Reason for consultation: right sided wekaness 03/22/25 07:42 Consult to Hematology / Oncology Routine [place]ing [place] [facility] [place] Reason for consultation: macrocytic pancytopenia DS: Diagnosis Discharge Diagnosis (1) Hypertension: Status: Acute DS: Summary Hospital Course Hospital Course: from initial hpi: 80M PMH HTN, schizoaffective, breast and endometrial cancer in remission presented with expressive aphasia. Last known well time was 02:00 of day of presentation. For on 10:00 sister noticed expressive aphasia and slurred speech, patient noticed some right upper extremity weakness. 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 For hypertension initially permissive hypertension, when MRI was negative amlodipine was restarted and losartan added. For schizoaffective disorder was continued on Risperdal and Clozaril. For history of breast cancer and endometrial cancer patient appears to be in remission. For macrocytic pancytopenia was seen by Hematology. Differential includes alcohol use versus MDS and she will follow up outpatient for this. She was not noted to have borderline low B12 and folate although this not the cause of pancytopenia she has been started on supplement. Time Attestation Discharge Coordination Time (in mins): 32 Quality: Safe Use of Opioids Does Pt have an Active Cancer Diagnosis on the Problem List?: No Quality: Stroke Does the patient have a stroke diagnosis?: No Physical Exam Exam: Exam: General: AO X 3, no acute distress Resp: CTA bilateral, no accessory muscles used CVS: S1,S2,RRR GI: soft, non tender, non distended Neuro: grossly weak bilateral, alert Psych: appropriate affect, appropriate insight Vital Signs: Vital Signs: Last Vital Signs Temp 97.8 F 03/24/25 07:31 Pulse 75 03/24/25 07:31 Resp 18 03/24/25 07:31 BP 150/76 H 03/24/25 07:31 Pulse Ox 95 03/24/25 07:31 O2 Del Method Room Air 03/24/25 07:31 BMI result Body Mass Index 31.5 DS: Data Data Completed and Pending Labs on day of discharge: Laboratory Results - last 24 hr 03/22/25 04:30 Absolute Retic 0.061 Percent Retic 2.0 H Immature Retic Fraction 21.1 H Retic Hgb Equivalent 35.7 H Lactate Dehydrogenase 201 Discharge Plan Discharge Anticipated Discharge Date/Time: 03/24/25 10:30 Patient Disposition: Xfer SNF Discharge Diagnosis: ams Referrals: [facility] [Outside] - 1 Day Referral Note: short term rehab Kiara Cole MD [Physician, Hematology & Oncology] - 1 Week Physician,Chinyere Hendricks [Primary Care Provider, Medical] - 1 Week Discharge Medications: New losartan 25 mg Tablet 25 mg PO DAILY Qty: 0 0RF Protocol: Hold for SBP< HOLD for SBP < : 90 folic acid 1 mg Tablet 1 mg PO DAILY Qty: 0 0RF cyanocobalamin (vitamin B-12) [Vitamin B-12] 1,000 mcg Tablet 1,000 mcg PO DAILY Qty: 0 0RF Continued atorvastatin 40 mg tablet 40 mg PO DAILY gabapentin 600 mg tablet 600 mg PO TID amlodipine 2.5 mg tablet 2.5 mg PO DAILY risperidone 2 mg tablet 2 mg PO BID aspirin 81 mg Tablet 81 mg PO DAILY quetiapine 400 mg tablet extended release 24 hr 400 mg PO BEDTIME Discharge Orders: Discharge Order (Routine); Ordered 03/24/25 Ordered By: Vel Villarreal Diet: Advance to usual diet Activity on Discharge: As tolerated Stand Alone Forms: Patient Portal Discharge page Print Language: Mexican Care Plan Goals: recovery Health Concerns: weakness Plan of Treatment: vaoid alcohol, start vitamin supplement, follow up with hematology Assessment: see above
[2025-03-27 09:10] LABS: Alcohol, Ethyl Urine Screen NEGATIVE
[2025-03-28 16:18] LABS: Kappa/Lambda Lt Ch Free Ratio 0.99 (0.26-1.65)
== END 2025-03-24 11:08 | disposition skilled nursing facility (03) | DRG 74 ==
LOC: HO.ED 16:49 → HO.EDOVER 16:50 → HO.IMC 03-22 07:24
PROVIDERS: Internal Medicine; Admitting Provider Internal Medicine; Emergency Provider Emergency Medicine; PCP Registered Nurse Emergency; Visit Provider Internal Medicine
DX: G62.1 Alcoholic polyneuropathy (principal); D46.9 Myelodysplastic syndrome, unspecified; R29.810 Facial weakness; I10 Essential (primary) hypertension; F10.90 Alcohol use, unspecified, uncomplicated; F25.9 Schizoaffective disorder, unspecified; D75.89 Other specified diseases of blood and blood-forming organs; Z85.3 Personal history of malignant neoplasm of breast; Z85.42 Personal history of malignant neoplasm of other parts of uterus; Z79.82 Long term (current) use of aspirin; Z79.899 Other long term (current) drug therapy
CPT/HCPCS: 36415; 70450; 70496; 70498; 70551; 80048; 80061; 80076; 80307; 82607; 82746; 82784; 82947; 83036; 83521; 83615; 83735; 84443; 84484; 85025; 85027; 85045; 85610; 85730; 86334; 93005; 93306; 95819; 97116; 97162; 97166; 97530; 99222; 99285; J1650; Q9957; Q9967

== ENCOUNTER → 2025-03-21 15:15 | Outpatient (BNV) | payer MEDICARE, MEDICAID, SELFPAY | PROVIDERS: Emergency Provider Emergency Medicine; Visit Provider Radiology Diagnostic Radiology | DX: R53.1 Weakness (principal) | CPT/HCPCS: 70450; 70496; 70498; 70551 ==

== ENCOUNTER → 2025-03-21 15:15 | Outpatient (BNV) | payer MEDICARE, SELFPAY | PROVIDERS: Admitting Provider Internal Medicine; Emergency Provider Emergency Medicine; Visit Provider Internal Medicine Cardiovascular Disease | DX: R00.0 Tachycardia, unspecified (principal) | CPT/HCPCS: 93010 ==

== ENCOUNTER → 2025-03-21 16:00 | Outpatient (BNV) | payer MEDICARE, SELFPAY | PROVIDERS: Emergency Provider Emergency Medicine; Visit Provider Internal Medicine | DX: I10 Essential (primary) hypertension (principal); R47.01 Aphasia | CPT/HCPCS: 99222; 99232 ==

== ENCOUNTER 2025-03-21 16:27 | Outpatient (BNV) | payer MEDICARE, SELFPAY | END 2025-03-23 13:06 | PROVIDERS: Admitting Provider Internal Medicine; Emergency Provider Emergency Medicine; Visit Provider Internal Medicine Cardiovascular Disease | DX: R00.0 Tachycardia, unspecified (principal) | CPT/HCPCS: 93010 ==

== ENCOUNTER 2025-03-21 16:27 | Outpatient (BNV) | payer MEDICARE, SELFPAY | END 2025-03-22 15:00 | PROVIDERS: Admitting Provider Internal Medicine; Emergency Provider Emergency Medicine; Visit Provider Psychiatry & Neurology Neurology | DX: R41.82 Altered mental status, unspecified (principal) | CPT/HCPCS: 95819 ==

== ENCOUNTER 2025-03-21 16:27 | Outpatient (BNV) | payer MEDICARE, SELFPAY | END 2025-03-22 07:00 | PROVIDERS: Admitting Provider Internal Medicine; Emergency Provider Emergency Medicine; Visit Provider Internal Medicine Cardiovascular Disease | DX: I51.89 Other ill-defined heart diseases (principal); I35.8 Other nonrheumatic aortic valve disorders; I27.20 Pulmonary hypertension, unspecified | CPT/HCPCS: 93306 ==

== ENCOUNTER → 2025-03-21 16:27 | Outpatient (BNV) | payer MEDICARE, SELFPAY | PROVIDERS: Admitting Provider Internal Medicine; Emergency Provider Emergency Medicine; Visit Provider Psychiatry & Neurology Neurology | DX: G40.909 Epilepsy, unspecified, not intractable, without status epilepticus (principal) | CPT/HCPCS: 99222 ==